=== PATIENT | male | born 1995 | race Hispanic/Latino ===

== ENCOUNTER 2018-01-30 10:04 | Emergency (ER) | payer SELFPAY | END 2018-01-30 11:47 | disposition home or self-care (01) | LOC: ERS 10:04 | DX: S39.012A Strain of muscle, fascia and tendon of lower back, initial encounter (principal); F17.200 Nicotine dependence, unspecified, uncomplicated; X50.0XXA Overexertion from strenuous movement or load, initial encounter; Y99.0 Civilian activity done for income or pay | CPT/HCPCS: 99283 ==

== ENCOUNTER 2019-11-27 12:10 | Emergency (ER) | payer BC, OTHER ==
[2019-11-27 17:53] LABS: SARS-CoV-2 MS2 Positive; SARS-CoV-2 N Gene Negative; SARS-CoV-2 S Gene Negative; SARS-CoV-2 by NAA Not Detected (NotDetected); SARS-CoV-2 orf1ab Negative
== END 2019-11-27 12:30 | disposition home or self-care (01) ==
LOC: ERS 12:10
DX: R05 Cough (principal); R52 Pain, unspecified; R68.83 Chills (without fever); Z20.828 Contact with and (suspected) exposure to other viral communicable diseases; F17.210 Nicotine dependence, cigarettes, uncomplicated
CPT/HCPCS: 87635; 99283; U0003

== ENCOUNTER 2020-01-15 22:03 | Emergency (ER) | payer BC ==
[2020-01-16 20:50] LABS: SARS-CoV-2 MS2 Positive; SARS-CoV-2 N Gene Negative; SARS-CoV-2 S Gene Negative; SARS-CoV-2 by NAA Not Detected (NotDetected); SARS-CoV-2 orf1ab Negative
== END 2020-01-15 23:17 | disposition home or self-care (01) ==
LOC: ERS 22:03
DX: R53.83 Other fatigue (principal); Z20.828 Contact with and (suspected) exposure to other viral communicable diseases; F17.210 Nicotine dependence, cigarettes, uncomplicated
CPT/HCPCS: 87635; 99283; U0003

== ENCOUNTER 2020-02-16 17:10 | Emergency (ER) | payer BC, SELFPAY ==
[2020-02-17 01:44] LABS: SARS-CoV-2 MS2 Positive; SARS-CoV-2 N Gene Negative; SARS-CoV-2 S Gene Negative; SARS-CoV-2 by NAA Not Detected (NotDetected); SARS-CoV-2 orf1ab Negative
== END 2020-02-16 18:00 | disposition home or self-care (01) ==
LOC: ERS 17:10
DX: R51.9 Headache, unspecified (principal); R06.02 Shortness of breath; F17.210 Nicotine dependence, cigarettes, uncomplicated; Z20.828 Contact with and (suspected) exposure to other viral communicable diseases
CPT/HCPCS: 87635; 99284; U0003

== ENCOUNTER 2025-01-03 02:32 | Emergency (ER) | payer BC, OTHER | END 2025-01-03 05:35 | LOC: ERS 02:32 | DX: S80.01XA Contusion of right knee, initial encounter (principal); F17.210 Nicotine dependence, cigarettes, uncomplicated; V49.9XXA Car occupant (driver) (passenger) injured in unspecified traffic accident, initial encounter; Y92.410 Unspecified street and highway as the place of occurrence of the external cause ==